=== PATIENT | female | born 1995 | race African-American/Black ===

== ENCOUNTER 2018-09-30 20:26 | Emergency (ER) | payer OTHER ==
[~2018-09-30] VITALS: Ht 149.9 cm; Wt 54.1 kg
[2018-09-30] MEDS ORDERED: ZOLO50TA PO (20:38)
[2018-09-30 22:13] LABS: HEMATOCRIT 34.1 % (36.0-47.0); HEMOGLOBIN 10.6 g/dl (12.0-15.5); MEAN CORPUSCULAR HGB CONC 31.1 g/dl (32.0-36.5); PLATELET COUNT, AUTOMATED 286 10^3/uL (150-450); RED BLOOD COUNT 4.61 10^6/uL (4.00-5.40); WHITE BLOOD COUNT 7.7 10^3/uL (4.0-10.0)
[2018-09-30 22:41] LABS: ALBUMIN 3.9 GM/DL (3.2-5.2); ALT/SGPT 61 U/L (12-78); BILIRUBIN,DIRECT < 0.1 MG/DL (0.0-0.2); BILIRUBIN,TOTAL 0.5 MG/DL (0.2-1.0); BLOOD UREA NITROGEN 19 MG/DL (7-18); CALCIUM LEVEL 8.6 MG/DL (8.5-10.1); CARBON DIOXIDE LEVEL 28 MEQ/L (21-32); CHLORIDE LEVEL 107 MEQ/L (98-107); CPK CREATINE PHOSPHOKINASE 519 U/L (26-192); CREATININE FOR GFR 0.85 MG/DL (0.55-1.30); GLOMERULAR FILTRATION RATE > 60.0 (>60); GLUCOSE, FASTING 81 MG/DL (70-100); MB/CK RELATIVE INDEX 0.62 (< OR =4); POTASSIUM SERUM 4.2 MEQ/L (3.5-5.1); SODIUM LEVEL 140 MEQ/L (136-145)
[2018-09-30] MEDS ORDERED: NAPR-837 PO (22:52)
[2018-09-30 23:03] VITALS: BP 122/66
== END 2018-09-30 23:30 | disposition home or self-care (01) ==
LOC: M ED 20:26
DX: M79.671 Pain in right foot (principal); M79.672 Pain in left foot; Z79.899 Other long term (current) drug therapy

== ENCOUNTER 2018-10-01 14:47 | Emergency (ER) | payer OTHER ==
[~2018-10-01 14:47] MED LIST: NAPR-837 PO; ZOLO50TA PO
[2018-10-01 16:11] LABS: BLOOD UREA NITROGEN 17 MG/DL (7-18); CALCIUM LEVEL 8.8 MG/DL (8.5-10.1); CARBON DIOXIDE LEVEL 29 MEQ/L (21-32); CHLORIDE LEVEL 107 MEQ/L (98-107); CPK CREATINE PHOSPHOKINASE 409 U/L (26-192); CREATININE FOR GFR 0.85 MG/DL (0.55-1.30); GLOMERULAR FILTRATION RATE > 60.0 (>60); GLUCOSE, FASTING 83 MG/DL (70-100); POTASSIUM SERUM 4.1 MEQ/L (3.5-5.1); SODIUM LEVEL 138 MEQ/L (136-145)
[2018-10-01 17:02] VITALS: BP 114/62
== END 2018-10-01 17:02 | disposition home or self-care (01) ==
LOC: M ED 14:47
DX: M79.89 Other specified soft tissue disorders (principal); F32.9 Major depressive disorder, single episode, unspecified; Z87.891 Personal history of nicotine dependence; Z79.899 Other long term (current) drug therapy

== ENCOUNTER 2018-11-11 14:58 | Emergency (ER) | payer OTHER ==
[~2018-11-11] VITALS: Ht 149.9 cm; Wt 56.6 kg
[2018-11-11] MEDS ORDERED: CIPR-249 PO (17:36)
[2018-11-11] MEDS ORDERED: PYRI1TAB5 PO (17:36)
[2018-11-11 17:45] VITALS: BP 108/64
[2018-11-11] MEDS ORDERED: CIPROFLOXACIN 500 MG TAB PO ONE (17:45)
[2018-11-11] MEDS ORDERED: PHENAZOPYRIDINE 100 MG TAB PO ONE (17:45)
== END 2018-11-11 17:47 | disposition home or self-care (01) ==
LOC: M ED 14:58
DX: N39.0 Urinary tract infection, site not specified (principal); Z87.891 Personal history of nicotine dependence

== ENCOUNTER 2019-01-06 19:25 | Emergency (ER) | payer OTHER ==
[~2019-01-06] VITALS: Ht 149.9 cm; Wt 54.1 kg
[~2019-01-06 19:25] MED LIST changes: +CIPR-249 PO; +PYRI1TAB5 PO
[2019-01-06] MEDS ORDERED: METF500T13 PO (19:34)
[2019-01-06 20:03] LABS: HEMATOCRIT 31.3 % (36.0-47.0); HEMOGLOBIN 9.8 g/dl (12.0-15.5); MEAN CORPUSCULAR HEMOGLOBIN 23.4 pg (27.0-33.0); MEAN CORPUSCULAR HGB CONC 31.3 g/dl (32.0-36.5); MEAN CORPUSCULAR VOLUME 74.9 fl (80.0-96.0); PLATELET COUNT, AUTOMATED 274 10^3/uL (150-450); RED BLOOD COUNT 4.18 10^6/uL (4.00-5.40); WHITE BLOOD COUNT 7.7 10^3/uL (4.0-10.0)
[2019-01-06 20:22] LABS: APPEARANCE, URINE HAZY (CLEAR); BACTERIA, URINE AUTO NEGATIVE (NEGATIVE); BILIRUBIN, URINE AUTO NEGATIVE (NEGATIVE); BLOOD, URINE BLOOD NEGATIVE (NEGATIVE); COLOR, URINE YELLOW (YELLOW); GLUCOSE, URINE (UA) AUTO NEGATIVE (NEGATIVE); KETONE, URINE AUTO NEGATIVE (NEGATIVE); LEUKOCYTE ESTERASE, URINE AUTO NEGATIVE (NEGATIVE); MUCUS, URINE SMALL (NEGATIVE); NITRITE, URINE AUTO NEGATIVE (NEGATIVE); PROTEIN, URINE AUTO NEGATIVE (NEGATIVE); RBC, URINE AUTO 2 /HPF (0-3); SPECIFIC GRAVITY URINE AUTO 1.026 (1.002-1.035); SQUAMOUS EPITHELIAL CELL UR AU 5 /HPF (0-6); UROBILINOGEN, URINE AUTO 0.2 mg/dL (0.0-2.0); WBC, URINE AUTO 2 /HPF (0-3)
[2019-01-06 20:23] LABS: BLOOD UREA NITROGEN 14 MG/DL (7-18); CALCIUM LEVEL 9.1 MG/DL (8.5-10.1); CARBON DIOXIDE LEVEL 29 MEQ/L (21-32); CHLORIDE LEVEL 108 MEQ/L (98-107); CREATININE FOR GFR 0.92 MG/DL (0.55-1.30); GLOMERULAR FILTRATION RATE > 60.0 (>60); GLUCOSE, FASTING 89 MG/DL (70-100); POTASSIUM SERUM 4.2 MEQ/L (3.5-5.1); SODIUM LEVEL 141 MEQ/L (136-145)
[2019-01-06 20:26] LABS: HCG, SERUM QUALITATIVE NEGATIVE (NEGATIVE)
[2019-01-06 20:48] LABS: ALBUMIN 3.9 GM/DL (3.2-5.2); ALT/SGPT 19 U/L (12-78); BILIRUBIN,DIRECT < 0.1 MG/DL (0.0-0.2); BILIRUBIN,TOTAL 0.3 MG/DL (0.2-1.0); LIPASE 72 U/L (73-393); TOTAL PROTEIN 7.7 GM/DL (6.4-8.2)
[2019-01-06] MEDS ORDERED: IBUPROFEN 600 MG TAB PO ONE (21:00)
[2019-01-06 22:41] VITALS: BP 102/65
--- NOTE | 2019-01-06 23:22 | REPVR ---
EXAM: US Pelvis Complete, Transabdominal and US Pelvis, Transvaginal EXAM DATE/TIME: 01/06/2019 9:55 PM CLINICAL HISTORY: 23 years old, female; Pelvic pain; Additional info: Bilateral pelvic pain TECHNIQUE: Imaging protocol: Real-time transabdominal and transvaginal pelvic ultrasound (complete) with image documentation. Transvaginal imaging was used for better evaluation of the endometrium and adnexa. COMPARISON: No relevant prior studies available. FINDINGS: Uterus/cervix: 7.8 x 2.7 x 3.4 cm. Normal endometrial thickness, measuring approximately 7 mm. Right ovary: 3.7 x 2.4 x 2.8 cm. No mass. Normal ovarian blood flow. Left ovary: 3.8 x 2.5 x 2.6 cm. No mass. Normal ovarian blood flow. Free fluid: None. Bladder: Normal. IMPRESSION: No acute sonographic findings. Electronically signed by: Bert Shipley On 01/06/2019 23:22:15 PM
== END 2019-01-06 22:42 | disposition home or self-care (01) ==
LOC: M ED 19:25
DX: R10.2 Pelvic and perineal pain (principal); E11.9 Type 2 diabetes mellitus without complications; E28.2 Polycystic ovarian syndrome; F17.210 Nicotine dependence, cigarettes, uncomplicated; Z79.84 Long term (current) use of oral hypoglycemic drugs

== ENCOUNTER 2019-02-11 19:46 | Emergency (ER) | payer OTHER ==
[~2019-02-11] VITALS: Ht 149.9 cm; Wt 54.5 kg
[2019-02-11 19:46] VITALS: BP 125/59
[~2019-02-11 19:46] MED LIST changes: +METF500T13 PO
[2019-02-11 22:26] LABS: BASO % 0.4 % (0.0-1.0); EOS # 0.2 10^3/uL (0.0-0.5); EOS % 2.1 % (0.0-3.0); HEMATOCRIT 31.1 % (36.0-47.0); LYMPH # 3.3 10^3/uL (1.5-5.0); LYMPH % 43.7 % (24.0-44.0); MEAN CORPUSCULAR HGB CONC 32.2 g/dl (32.0-36.5); MEAN CORPUSCULAR VOLUME 74.8 fl (80.0-96.0); MONO # 0.7 10^3/uL (0.0-0.8); NEUTROPHILS # 3.4 10^3/uL (1.5-8.5); NEUTROPHILS % 44.5 % (36.0-66.0); PLATELET COUNT, AUTOMATED 267 10^3/uL (150-450); RED BLOOD COUNT 4.16 10^6/uL (4.00-5.40); WHITE BLOOD COUNT 7.6 10^3/uL (4.0-10.0)
[2019-02-11 23:01] LABS: ALBUMIN 3.8 GM/DL (3.2-5.2); ALT/SGPT 24 U/L (12-78); BILIRUBIN,DIRECT < 0.1 MG/DL (0.0-0.2); BILIRUBIN,TOTAL 0.4 MG/DL (0.2-1.0); LIPASE 104 U/L (73-393); TOTAL PROTEIN 7.8 GM/DL (6.4-8.2)
[2019-02-11] MEDS ORDERED: MOTR200T44 PO (23:22)
== END 2019-02-11 23:44 | disposition home or self-care (01) ==
LOC: M ED 19:46
DX: R10.2 Pelvic and perineal pain (principal)

== ENCOUNTER 2019-03-17 16:40 | Emergency (ER) | payer OTHER ==
[~2019-03-17] VITALS: Ht 149.9 cm; Wt 56.7 kg
[~2019-03-17 16:40] MED LIST changes: +MOTR200T44 PO
[2019-03-17] MEDS ORDERED: MUCI600T31 PO (16:44)
[2019-03-17] MEDS ORDERED: ACE65ERTAB PO (16:44)
[2019-03-17] MEDS ORDERED: PSEUDOEPHEDRINE 30 MG TAB PO STA (17:16)
[2019-03-17] MEDS ORDERED: BENZONATATE 100 MG CAP PO ONE (17:30)
[2019-03-17] MEDS ORDERED: METOCLOPRAMIDE 10 MG TAB PO ONE (17:30)
[2019-03-17] MEDS ORDERED: IBUPROFEN 600 MG TAB PO ONE (17:30)
[2019-03-17] MEDS ORDERED: ALBUTEROL SULFATE 2.5 MG/0.5 ML INH NEB SOLN NEB ONE (17:30)
[2019-03-17] MEDS ORDERED: FLON1SPR NARES (18:20)
[2019-03-17] MEDS ORDERED: PROAAER10 INH (18:20)
[2019-03-17] MEDS ORDERED: PSEU120T19 PO (18:20)
[2019-03-17] MEDS ORDERED: TESS100C PO (18:20)
[2019-03-17 18:32] VITALS: BP 114/63
--- NOTE | 2019-03-17 19:05 | REP ---
HISTORY: Cough. COMPARISON: None. FINDINGS: The superior mediastinal structures are midline. The cardiac silhouette is unremarkable in size, shape and position. The diaphragmatic surfaces of the lungs are regular and the costophrenic angles are clear. The pulmonary busch are clear. The imaged osseous structures are intact. IMPRESSION: There is no acute cardiopulmonary disease. Electronically Signed by Casper Paulson DO 03/17/2019 07:46 P
== END 2019-03-17 18:33 | disposition home or self-care (01) ==
LOC: M ED 16:40
DX: J06.9 Acute upper respiratory infection, unspecified (principal); E28.2 Polycystic ovarian syndrome; Z79.899 Other long term (current) drug therapy

== ENCOUNTER 2019-03-22 10:19 | Emergency (ER) | payer OTHER ==
[~2019-03-22] VITALS: Ht 149.9 cm; Wt 56.7 kg
[~2019-03-22 10:19] MED LIST changes: +ACE65ERTAB PO; +FLON1SPR NARES; +MUCI600T31 PO; +PROAAER10 INH; +PSEU120T19 PO; +TESS100C PO
[2019-03-22 11:27] LABS: INFLUENZA A AMPLIFICATION NEGATIVE (NEGATIVE); INFLUENZA B AMPLIFICATION NEGATIVE (NEGATIVE)
[2019-03-22 11:51] VITALS: BP 113/65
== END 2019-03-22 11:52 | disposition home or self-care (01) ==
LOC: M ED 10:19
DX: J06.9 Acute upper respiratory infection, unspecified (principal); F17.210 Nicotine dependence, cigarettes, uncomplicated; Z79.899 Other long term (current) drug therapy

== ENCOUNTER 2019-04-03 17:57 | Emergency (ER) | payer OTHER ==
[~2019-04-03] VITALS: Ht 149.9 cm; Wt 57.3 kg
[2019-04-03 19:52] LABS: BASO % 0.4 % (0.0-1.0); EOS # 0.1 10^3/uL (0.0-0.5); EOS % 1.8 % (0.0-3.0); HEMATOCRIT 34.5 % (36.0-47.0); HEMOGLOBIN 10.6 g/dl (12.0-15.5); LYMPH # 2.8 10^3/uL (1.5-5.0); LYMPH % 37.9 % (24.0-44.0); MEAN CORPUSCULAR HEMOGLOBIN 22.8 pg (27.0-33.0); MEAN CORPUSCULAR HGB CONC 30.7 g/dl (32.0-36.5); MEAN CORPUSCULAR VOLUME 74.2 fl (80.0-96.0); MONO # 0.6 10^3/uL (0.0-0.8); MONO % 8.6 % (0.0-5.0); NEUTROPHILS # 3.8 10^3/uL (1.5-8.5); NEUTROPHILS % 51.2 % (36.0-66.0); PLATELET COUNT, AUTOMATED 354 10^3/uL (150-450); RED BLOOD COUNT 4.65 10^6/uL (4.00-5.40); WHITE BLOOD COUNT 7.4 10^3/uL (4.0-10.0)
[2019-04-03 20:11] LABS: BLOOD UREA NITROGEN 11 MG/DL (7-18); CARBON DIOXIDE LEVEL 29 MEQ/L (21-32); CHLORIDE LEVEL 107 MEQ/L (98-107); CREATININE FOR GFR 0.83 MG/DL (0.55-1.30); GLOMERULAR FILTRATION RATE > 60.0 (>60); GLUCOSE, FASTING 87 MG/DL (70-100); HCG, SERUM QUANTITATIVE < 1.0 MIU/ML; SODIUM LEVEL 139 MEQ/L (136-145)
[2019-04-03 20:24] VITALS: BP 116/54
== END 2019-04-03 20:48 | disposition home or self-care (01) ==
LOC: M ED 17:57
DX: Z32.02 Encounter for pregnancy test, result negative (principal); F17.200 Nicotine dependence, unspecified, uncomplicated